=== PATIENT | female | born 1985 | race Caucasian/White ===

== ENCOUNTER 2022-09-14 18:59 | Emergency (ER) | payer BC, SELFPAY ==
[2022-09-14 19:07] VITALS: BP 139/79; PULSE 90; RESP 20; TEMP 37.1; O2SAT 100; BMI 23.8
--- NOTE | 2022-09-14 19:48 | ED.GENADULT ---
HPI - General Adult General Chief complaint: Urogenital Problems, Female Stated complaint: Really bad yeast infection Time Seen by Provider: 09/14/22 19:06 History of Present Illness HPI narrative: This 37-year-old female comes in with vaginal symptoms that she attributes to yeast infection. She has had symptoms like this in the past before. She has not been an any antibiotic treatments recently. She reports discomfort and itching with some discharge. Related Data Previous Rx's Medication Instructions Recorded fluconazole 100 mg tablet 100 mg PO DAILY #15 tabs 09/14/22 (Diflucan) Allergies Allergy/AdvReac Type Severity Reaction Status Date / Time aloe vera [From Benzo-Creme] Allergy Verified 09/14/22 19:06 benzocaine [From Benzo-Creme] Allergy Verified 09/14/22 19:06 ergocalciferol (vitamin D2) Allergy Verified 09/14/22 19:06 [From Benzo-Creme] minocycline Allergy Verified 09/14/22 19:06 Tetracyclines Allergy Verified 09/14/22 19:06 vitamin A [From Benzo-Creme] Allergy Verified 09/14/22 19:06 vitamin E (d-alpha Allergy Verified 09/14/22 19:06 tocopherol) [From Benzo-Creme] Review of Systems Status of ROS: Reports: 10 or more systems reviewed and unremarkable except as noted in History and below Narrative: Constitutional: No fevers, no weight gain or loss. Eyes: No discharge. No vision changes. HENT: No congestion, no sore throat, no ear pain. Cardiovascular: No chest pain, no palpitations. Respiratory: No shortness of breath, no wheezes, no cough. Gastrointestinal: No abdominal pain, no vomiting, no diarrhea. Genitourinary: No dysuria, no hematuria. Vaginal symptoms as described above. Musculoskeletal: Normal range of motion. Skin: No rashes, no pruritis. Neurological: No dizziness, weakness, sensory change, speech change. Endo/Heme/Allergies: No bruising or bleeding. No polydipsia. Pysch: no suicidality, no anxiety, no insomnia. All other systems reviewed and are negative. PFS PFS Social History Smoking Status: Never smoker Do you use any of these nicotine containing products: None Second hand tobacco smoke exposure: No How often do you have a drink containing alcohol: 2-3 times a week How many standard drinks containing alcohol do you have on a typical day: 3 or 4 How often do you have six or more drinks on one occasion: Weekly AUDIT-C Alcohol total score: 7 Non-prescribed substance use: denies use service: No Exam Narrative: Exam Narrative: Constitutional: Well-developed, well-nourished, no acute distress. HEENT: Normocephalic, atraumatic. Neck: Normal range of motion. Nontender. Supple. Heart: Regular. No murmurs. Normal rate. Intact distal pulses. Lungs: Clear to auscultation. No chest discomfort. No wheezes, rhonchi, or rales. Abdomen: Normal bowel sounds. Nontender. No rebound tenderness. Genitalia: Normal appearing genital exam. Back: No midline tenderness. Normal range of motion. Extremities: Normal range of motion. No injury. Skin: Intact. No rash. Warm. No erythema or pallor. Neurologic: No altered sensation. No weakness. Alert and oriented. Psychiatric: No suicidality. No anxiety or depression. No insomnia. Nursing notes and vitals signs are reviewed. Const: Vital Signs, click to edit/add: Vital Signs - 24 hr 09/14/22 19:07 Temperature 98.7 F Pulse Rate [Pulse Oximeter] 90 Respiratory Rate 20 Blood Pressure [Le ft Upper Arm] 139/79 Pulse Oximetry 100 Oxygen Delivery Me thod Room Air Course Vital Signs Vital signs: Initial Vital Signs Temperature 98.7 F 09/14/22 19:07 Temperature Source Temporal Artery Scan 09/14/22 19:07 Pulse Rate 90 09/14/22 19:07 Pulse Rhythm Regular 09/14/22 19:07 Respiratory Rate 20 09/14/22 19:07 Blood Pressure 139/79 09/14/22 19:07 Blood Pressure Mean 99 09/14/22 19:07 Blood Pressure Position Supine 09/14/22 19:07 Pulse Oximetry 100 09/14/22 19:07 Oxygen Delivery Method Room Air 09/14/22 19:07 Vital Signs Temperature 98.7 F 09/14/22 19:07 Pulse Rate 90 09/14/22 19:07 Respiratory Rate 20 09/14/22 19:07 Blood Pressure 139/79 09/14/22 19:07 Pulse Oximetry 100 09/14/22 19:07 Oxygen Delivery Method Room Air 09/14/22 19:07 Temperature 98.7 F 09/14/22 19:07 Pulse Rate 90 09/14/22 19:07 Respiratory Rate 20 09/14/22 19:07 Blood Pressure 139/79 09/14/22 19:07 Pulse Oximetry 100 09/14/22 19:07 Oxygen Delivery Method Room Air 09/14/22 19:07 Medical Decision Making MDM Narrative Medical decision making narrative: This patient has symptoms suspicious for a vaginal yeast infection. A wet prep is obtained and the patient did receive a tablet of Diflucan 100 mg. 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 Results for the wet prep are pending at the end of my shift. If evidence of bacterial vaginosis are present the patient would benefit from a prescription of Flagyl. With overnight physician will attend these results and proceed accordingly. Discharge Plan Discharge Clinical Impression: Vaginitis Patient Disposition: Home, Self-Care Condition: Stable Additional Instructions: Take medication as prescribed. Follow up with MD or return if worsening. Prescriptions: New fluconazole [Diflucan] 100 mg tablet 100 mg PO DAILY Qty: 15 0RF Follow Up/Referrals: Mary Lau MD [Primary Care Provider] - Stand Alone Forms: [facility] Info Instructions
[2022-09-14 19:58] LABS: Clue Cells No Clue Cells Seen (None Seen); Trichomonas No Trichomonas Seen (None Seen); Yeast No Yeast Seen (None Seen)
--- NOTE | 2022-09-14 20:20 | ED.NURSE ---
reviewed pt's results from wet prep, nothing seen at this time that warrants abx, doctor notified. Charge Nurse notified of results as well.
== END 2022-09-14 20:04 | disposition home or self-care (01) ==
PROVIDERS: Emergency Provider Emergency Medicine Emergency Medical Services; PCP Family Medicine
DX: N76.0 Acute vaginitis (principal)
CPT/HCPCS: 87210; 99283; 99284